=== PATIENT | female | born 1955 | race Caucasian/White ===

== ENCOUNTER 2019-03-27 07:00 | Day surgery (SDC) | payer OTHER ==
[2019-03-19 12:08] VITALS: BMI 35.4
[2019-03-27] MEDS ORDERED: BUPIVACAINE HCL/EPINEPHRINE/PF 30 ML VIAL IJ ONE (08:18)
[2019-03-27] MEDS ORDERED: PROPOFOL 20 ML ONE ×3 (09:32→10:08)
[2019-03-27] MEDS ORDERED: MIDAZOLAM HCL 2 MG/2 ML SINGLE DOSE VIAL ONE (09:32)
[2019-03-27] MEDS ORDERED: DEXAMETHASONE SOD PHOSPHATE 4 MG/1 ML VIAL ONE (09:34)
[2019-03-27] MEDS ORDERED: ONDANSETRON 4 MG/2 ML VIAL ONE (09:34)
[2019-03-27] MEDS ORDERED: PHENYLEPHRINE HCL 10 MG/1 ML SINGLE DOSE VIAL ONE (10:00)
[2019-03-27] MEDS ORDERED: BUPIVACAINE 0.25% /EPI 1:200,000 10 ML VIAL INF ONE (10:07)
--- NOTE | 2019-03-27 10:46 | SURG ---
Surgery Litigation Services Manager Note Litigation Services Manager: Zhen Jean PA-C Date of Service: 03/27/19 Diagnosis: Left knee medial meniscal tear Procedure: Left knee arthsocopy. Medial meniscal repair I was present for the entirety of the operative procedure. For further detail, please refer to operative report. Visit type - Case Type Case Type: Scheduled - New patient This patient is new to me today: Yes Date on this admission: 03/27/19
--- NOTE | 2019-03-27 11:00 | DS ---
Physical Examination Vital Signs: Vital Signs Temperature 97.7 F 03/27/19 07:18 Pulse Rate 56 L 03/27/19 07:18 Respiratory Rate 18 03/27/19 07:18 Blood Pressure 106/70 03/27/19 07:18 O2 Sat by Pulse Oximetry (%) 97 03/27/19 07:18 Discharge Summary Reason For Visit: LEFT KNEE MEDIAL ROOT TEAR Condition: Stable - Instructions Diet, Activity, Other Instructions: Post Operative Instructions: Knee Arthroscopy Dr Eugenio Hernandez 1. Pain following an arthroscopy is variable. Some patients will have more pain than others. You have been provided with a prescription for medication that contains a narcotic. You are not allowed to drive while on this medication. You should NOT take Tylenol (Acetaminophen) when taking the pain medication ( it will result in an overdose). Feel free to take medications such as Ibuprofen or Naprosyn in addition to the pain medicine if you do not have any problems with the NSAID class of medications. 2. You are allowed to remove the bandages and shower in 24 hours unless directed otherwise. You are not allowed to bathe or go swimming until the sutures are removed. Put band-aids on the incisions after your shower and do not put any creams or lotions over the incisions. 3. You are allowed to put all your weight on the leg and bend your knee. Continue to use one crutch or a cane for support for the next few weeks. 4. Apply ice to the knee for 15 min every hour or so. You may continue this for as many days as you like. 5. Please call the office to schedule a visit to have your sutures removed. 6. If for any reason you believe you may have an infection or are concerned, please feel free to call me. I can be reached through our office number 24 hours a day. 7. Please call our office with any questions; we will review the surgical findings during your post operative visit. Disposition: HOME - Home Medications Comprehensive Discharge Medication List: Ambulatory Orders Aspirin Coated [Ecotrin -] 81 mg PO DAILY 03/19/19 Cholecalciferol (Vitamin D3) [Vitamin D] 2,000 unit PO DAILY 03/19/19 Clopidogrel Bisulfate [Clopidogrel] 75 mg PO DAILY 03/19/19 Cyanocobalamin Vit B-12 Inj. [Redisol] 1,000 mcg IM MONTHLY 03/19/19 Famotidine [Pepcid] 40 mg PO BID 03/19/19 Folic Acid - 1 mg PO DAILY 03/19/19 Hydroxychloroquine So4 [Plaquenil -] 200 mg PO BID 03/19/19 Levothyroxine Sodium [Levoxyl] 100 mcg PO DAILY 03/19/19 Levothyroxine Sodium [Synthroid] 88 mcg PO DAILY 03/19/19 Metoprolol Succinate 50 mg PO HS 03/19/19 Pitavastatin Calcium [Livalo] 2 mg PO HS 03/19/19 Potassium Chloride [Klor-Con M20] 20 meq PO DAILY 03/19/19 Prednisone 5 mg PO DAILY 03/19/19 Sulfamethoxazole/Trimethoprim [Bactrim Ds -] 1 tab PO DAILY 03/19/19 Torsemide 40 mg PO DAILY 03/19/19 Valacyclovir HCl [Valtrex] 1,000 mg PO HS 03/19/19
--- NOTE | 2019-03-27 11:00 | OP ---
Operative Note - Note: Operative Date: 03/27/19 Pre-Operative Diagnosis: Left knee MMT Operation: LKA, medial meniscal repair Post-Operative Diagnosis: Same as Pre-op Surgeon: Eugenio Hernandez Anesthesia: General Operative Report Dictated: Yes
[2019-03-27] MEDS ORDERED: ONDANSETRON 4 MG/2 ML VIAL IVPUSH PRN (11:21)
[2019-03-27] MEDS ORDERED: oxyCODONE HCL 5 MG TABLET PO PRN ×2 (11:21)
[2019-03-27] MEDS ORDERED: ACETAMINOPHEN 325 MG TABLET (FP) PO ONE (11:42)
[2019-03-27] MEDS ORDERED: ACETAMINOPHEN 325 MG TABLET (FP) ONE (11:43)
[2019-03-27 12:52] VITALS: TEMP 97.7
[2019-03-27 12:56] VITALS: BP 113/68; PULSE 57
--- NOTE | 2019-03-31 16:06 | PATH ---
Surgical Pathology Report Patient Name: DANIELLE NOGUEIRA [facility]. Rec. #: [id number] /Age/Gender: 1955 (Age: 63) / F Account: [id number] Location: [facility] Taken: 03/27/2019 Received: 03/27/2019 Reported: 03/31/2019 Physicians: Eugenio Hernandez M.D. Specimen(s) Received SHAVINGS LEFT KNEE Clinical History Medial meniscus tear/instability Final Diagnosis KNEE SHAVINGS, LEFT, ARTHROSCOPY, MENISCECTOMY, MENISCAL REPAIR: FRAGMENTS OF CARTILAGE, DENSE FIBROCONNECTIVE TISSUE, ADIPOSE TISSUE, AND SYNOVIUM. Electronically Signed Angelica Whitaker M.D. Gross Description Received in formalin labeled "shavings left knee," is a 2.0 x 1.3 x 0.3 cm aggregate of bahena-yellow portions of soft tissue. The formalin is filtered and the specimen is entirely submitted in one cassette. /03/30/2019 [facility]03/30/2019
== END 2019-03-27 12:45 | disposition home or self-care (01) ==
LOC: FASU 07:00
PROVIDERS: ATTEND Orthopaedic Surgery
PROC: 0SBD4ZZ Excision of Left Knee Joint, Percutaneous Endoscopic Approach (ICD-10-PCS; principal; 2019-03-27 10:06)
DX: S83.242A Other tear of medial meniscus, current injury, left knee, initial encounter (principal); X58.XXXA Exposure to other specified factors, initial encounter; Y93.9 Activity, unspecified; Y92.9 Unspecified place or not applicable; Y99.9 Unspecified external cause status; M65.9 Synovitis and tenosynovitis, unspecified; M32.9 Systemic lupus erythematosus, unspecified; I25.10 Atherosclerotic heart disease of native coronary artery without angina pectoris; E06.3 Autoimmune thyroiditis
CPT/HCPCS: 88304-TC; 94760